=== PATIENT | female | born 1970 ===

== ENCOUNTER 2025-09-04 12:22 | Emergency (ER) | payer MEDICAID, SELFPAY ==
[2025-09-04 12:27] VITALS: BP 157/90; PULSE 79; RESP 18; TEMP 36.2; O2SAT 98; BMI 31.4
--- NOTE | 2025-09-04 12:30 | ED_ITS ---
HPI - General Adult General Chief complaint: General Medical Stated complaint: med refill Time Seen by Provider: 09/04/25 12:30 Source: patient Mode of arrival: ambulatory Limitations: no limitations History of Present Illness ED Provider: SARAVANAN NEVILLE PA-C HPI narrative: 55 year old female presents to the ED today requesting medication refill. Patient states that she recently relocated here from [place]. She is currently at [facility]. She reports running out of her prescriptions 6 days ago. She has been unable to contact her prescriber in [place] as they retired. She has not yet established care w/ PCP out here. Her living facility sent her here to refill her prescriptions (fluoxetine 40 mg, melatonin 3 mg, hydroxyzine 25 mg, and lisinopril 5 mg. Admits to feeling anxious. Denies SI/HI. No physical complaints/ concerns. Related Data Previous Rx's ?Medication ?Instructions ?Recorded fluoxetine 40 mg capsule 40 mg PO DAILY 30 days #30 c aps 09/04/25 hydroxyzine HCl 25 mg tablet 25 mg PO BID PRN anxiety 14 days 09/04/25 #28 tabs lisinopril 5 mg tablet 5 mg PO DAILY 30 days #30 ta bs 09/04/25 melatonin 3 mg capsule 3 mg PO BEDTIME PRN sleep 14 days 09/04/25 #14 caps Allergies Allergy/AdvReac Type Severity Reaction Status Date / Time No Known Allergies Allergy Verified 09/04/25 12:31 Review of Systems Review of Systems: Yes all other systems are reviewed and are negative PMFSH Past Medical History Attestation statement: The following information was validated with the patient. Source: old records reviewed and nursing notes reviewed Social History Social History Advance Directives: No Advance Directives Information Provided: Yes Do you have a plan to hurt others: No Plan Physical Exam ED Vital Signs: Vital Signs - 24 hr 09/04/25 12:27 Temperature 97.2 F Pulse Rate 79 Respiratory Rate 18 Blood Pressure 157/90 H Pulse Oximetry 98 Oxygen Delivery Method Room Air BMI result Body Mass Index 31.4 hypertensive, vitals are otherwise wnl General: Well appearing, in no acute distress. Skin: Warm, dry, intact. No rashes or lesions. Head: Normocephalic, atraumatic. EENT: Hearing is intact b/l. Conjunctiva clear. Sclera is anicteric. PERRLA. EOM intact. Moist mucous membranes.? Neck: Supple without LAD Cardiac: Chest wall symmetric. RRR Lungs: Normal respiratory effort without accessory muscle use. CTA bilaterally Back: No midline spinous or paraspinal tenderness. No step off deformity. Ext: Upper and lower extremities atraumatic, without tenderness, deformity, swelling or erythema Neuro: AOx3. Normal speech. Ambulating with steady gait Medical Decision Making Medical Decision Making MDM Narrative: 55 year old female presents to the ED today requesting medication refill. she is slightly hypertensive, likely secondary to being off her meds x6 days. asympatomatic. vitals are otherwise wnl. her physical exam is benign. Plan for med refill and discharge back to facility. Will provide referrals for PCP. Differential Diagnosis Differential Diagnoses: The differential diagnosis associated with the presentation includes as above. Admission/Observation not indicated. Prescription Management I considered prescription management with: Other lisinopril, fluoxetine, hydroxyzine, melatonin Chronic Conditions Patient?s care impacted by: Hypertension and Other (anxiety) Social Determinants Patient?s care significantly limited by Social Determinants of Health including: Other Social Determinant of Health Critical Care Time Critical Care Time Critical Care Time: No Discharge Plan Discharge Clinical Impression: Encounter for medication refill Patient Disposition: Home, Self-Care Instructions: Medicine Refill (ED) Additional Instructions: You were evaluated in the ED today for a medication refill. You have been provided with a refill of your meds. I have also provided you with a referral to a PCP. Call them to establish care, they will not call you. You need to follow up with them for further prescriptions. Return with any new/worsening symptoms. In the case of an emergency call 911. Prescriptions: New lisinopril 5 mg tablet 5 mg PO DAILY 30 Days Qty: 30 1RF hydroxyzine HCl 25 mg tablet 25 mg PO BID PRN (Reason: anxiety) 14 Days Qty: 28 0RF melatonin 3 mg capsule 3 mg PO BEDTIME PRN (Reason: sleep) 14 Days Qty: 14 0RF fluoxetine 40 mg capsule 40 mg PO DAILY 30 Days Qty: 30 0RF Referrals: [facility] [Provider Group] [facility] [place] [facility], [place] [facility]] [facility] [Provider Group, Internal Medicine] Physician,Sana J [Primary Care Provider, Medical] Interventions: ED Discharge Assessment Last Done: 09/04/25 13:01 Discharge Date/Time: 09/04/25 13:02 Print Language: Mosotho
[2025-09-04 13:01] VITALS: BP 157/90; PULSE 79; RESP 18; TEMP 36.2; O2SAT 98
== END 2025-09-04 13:02 | disposition home or self-care (01) ==
PROVIDERS: Emergency Provider Emergency Medicine
DX: Z76.0 Encounter for issue of repeat prescription (principal); Z79.899 Other long term (current) drug therapy
CPT/HCPCS: 99282

== ENCOUNTER 2025-09-16 06:20 | Emergency (ER) | payer MEDICAID, SELFPAY ==
[2025-09-16 06:31] VITALS: BP 147/92; BP 169/67; PULSE 80; RESP 16; TEMP 36.5; O2SAT 100; BMI 30.9
--- NOTE | 2025-09-16 06:42 | ED_ITS ---
HPI - Skin/Abscess/Foreign Bdy General Chief complaint: Skin/Abscess/Foreign Body Stated complaint: ALLERGIC RXN X1W ON HER SKIN PER EMS Time Seen by Provider: 09/16/25 06:42 Related Data Previous Rx's ?Medication ?Instructions ?Recorded fluoxetine 40 mg capsule 40 mg PO DAILY 30 days #30 c aps 09/04/25 hydroxyzine HCl 25 mg tablet 25 mg PO BID PRN anxiety 14 days 09/04/25 #28 tabs lisinopril 5 mg tablet 5 mg PO DAILY 30 days #30 ta bs 09/04/25 melatonin 3 mg capsule 3 mg PO BEDTIME PRN sleep 14 days 09/04/25 #14 caps ammonium lactate 5 % lotion 1 appl topical BID #226 gr ams 09/16/25 (Lac-Hydrin Five) betamethasone dipropionate 0.05 % 1 appl topical DAILY #60 mL 09/16/25 lotion methylprednisolone 4 mg tablets in 4 mg PO DAILY #21 e a 09/16/25 a dose pack (Medrol (Yoel)) Allergies Allergy/AdvReac Type Severity Reaction Status Date / Time No Known Allergies Allergy Verified 09/16/25 06:36 [facility] Social History Social History Smoked in Last 30 Days: No Use of substances other than those prescribed or required for medical reasons: No Advance Directives: No Advance Directives Information Provided: Yes Physical Exam Vital Signs: Vital Signs: Last Vital Signs Temp 97.7 F 09/16/25 06:31 Pulse 80 09/16/25 06:31 Resp 16 09/16/25 06:31 BP 147/92 H 09/16/25 06:31 Pulse Ox 100 09/16/25 06:31 O2 Del Method Room Air 09/16/25 06:31 BMI result Body Mass Index 30.9 Discharge Plan Discharge Clinical Impression: Eczema Patient Disposition: Home, Self-Care Instructions: Dyshidrotic Eczema (ED) Additional Instructions: Apply Lac-Hydrin lotion to the face and other areas, betamethasone as a steroid as discussed you can use on the hands and chest but not really on neck or face I will fill out your skin, continue with steroids starting tomorrow, steroids given in the ER 1st dose this will help hopefully in the next 4-6 hours, we discussed follow up with the PCP, referral to Dermatology, oatmeal baths There was no evidence for infection Exam is consistent with eczema worsening due to environmental exposure Prescriptions: New betamethasone dipropionate 0.05 % lotion 1 appl topical DAILY Qty: 60 0RF Rx Instructions: apply to chest, and hands methylprednisolone [Medrol (Yoel)] 4 mg tablets,dose pack 4 mg PO DAILY Qty: 21 0RF Rx Instructions: Day 1: 24 mg on day 1 administered as 8 mg before breakfast, 4 mg after lunch, 4 mg after supper, and 8 mg at bedtime or 24 mg as a single dose or divided into 2 or 3 doses upon initiation. Day 2: 20 mg on day 2 administered as 4 mg before breakfast, 4 mg after lunch, 4 mg after supper, and 8 mg at bedtime. Day 3: 16 mg on day 3 administered as 4 mg before breakfast, 4 mg after lunch, 4 mg after supper, and 4 mg at bedtime. Day 4: 12 mg on day 4 administered as 4 mg before breakfast, 4 mg after phillip ch, and 4 mg at bedtime. Day 5: 8 mg on day 5 administered as 4 mg before breakfast and 4 mg at bedtime. Day 6: 4 mg on day 6 administered as 4 mg before breakfast. Lac-Hydrin Five 5 % lotion 1 appl topical BID Qty: 226 0RF Rx Instructions: apply to face, chest and hands in AM and PM No Action lisinopril 5 mg tablet 5 mg PO DAILY 30 Days Qty: 30 1RF hydroxyzine HCl 25 mg tablet 25 mg PO BID PRN (Reason: anxiety) 14 Days Qty: 28 0RF melatonin 3 mg capsule 3 mg PO BEDTIME PRN (Reason: sleep) 14 Days Qty: 14 0RF fluoxetine 40 mg capsule 40 mg PO DAILY 30 Days Qty: 30 0RF Print Language: Slovenian
[2025-09-16] MEDS: diphenhydrAMINE HCl 2 % Cream 28 GM TUBE 1 APPL TOPICAL (08:42)
[2025-09-16 09:24] VITALS: BP 147/92; PULSE 80; RESP 16; TEMP 36.5; O2SAT 100
== END 2025-09-16 09:25 | disposition home or self-care (01) ==
PROVIDERS: Emergency Provider Emergency Medicine
DX: L30.9 Dermatitis, unspecified (principal)
CPT/HCPCS: 99283; 99284; J8540